=== PATIENT | female | born 1955 | race Two or more races ===

== ENCOUNTER 2022-07-29 12:33 | Emergency (ER) | payer OTHER ==
[2022-07-29 12:56] VITALS: BP 136/62; PULSE 80; RESP 18; TEMP 99; BMI 27.4
[2022-07-29] MEDS ORDERED: ACETAMINOPHEN 325 MG TABLET (FP) PO ONE (14:30)
[2022-07-29] MEDS ORDERED: KETOROLAC TROMETHAMINE 60 MG/2 ML VIAL IM ONE (14:31)
[2022-07-29] MEDS ORDERED: KETOROLAC TROMETHAMINE 30 MG/1 ML VIAL ONE (14:35)
[2022-07-29] MEDS ORDERED: ACETAMINOPHEN 325 MG TABLET (FP) ONE (14:35)
== END 2022-07-29 16:24 | disposition home or self-care (01) ==
LOC: JERFT 12:33 → JER 12:33 → JERFT 16:24
PROC: 3E0233Z Introduction of Anti-inflammatory into Muscle, Percutaneous Approach (ICD-10-PCS; principal; 2022-07-29)
DX: M17.0 Bilateral primary osteoarthritis of knee (principal)
CPT/HCPCS: 73562-TC-LT-FY; 73562-TC-RT-FY; 99284-25